=== PATIENT | male | born 1980 | race Two or more races ===

== ENCOUNTER 2023-11-13 16:36 | Emergency (ER) | payer MEDICAID, OTHER ==
[~2023-11-13] VITALS: Ht 167.6 cm; Wt 72.6 kg
[2023-11-13] MEDS ORDERED: IBUP-1957 PO (19:34)
[2023-11-13] MEDS ORDERED: ACET-2605 PO (19:34)
[2023-11-13 20:59] VITALS: BP 129/88; TEMP 98.1; O2SAT 99
== END 2023-11-13 21:00 | disposition home or self-care (01) ==
LOC: ER 16:49
DX: M25.561 Pain in right knee (principal)
CPT/HCPCS: 73564-TC